=== PATIENT | male | born 1995 | race Two or more races ===

== ENCOUNTER 2018-02-25 06:30 | Emergency (ER) | payer OTHER ==
[2018-02-25 06:36] VITALS: BP 139/83
[2018-02-25] MEDS ORDERED: ONDANSETRON HCL INJ/PF 4 MG/2 ML SDV IV ONE (06:57)
[2018-02-25] MEDS ORDERED: DIAZEPAM 5 MG TABLET PO ONE (06:57)
[2018-02-25] MEDS ORDERED: NORMAL SALINE 1000 ML 1,000 ML IV ONE (06:57)
[2018-02-25] MEDS ORDERED: MECLIZINE HCL 25 MG TABLET PO ONE (06:57)
--- NOTE | 2018-02-25 07:03 | ER Document Report ---
ED General - General Chief Complaint: Dizziness Stated Complaint: VOMITING Time Seen by Provider: 02/25/18 06:50 TRAVEL OUTSIDE OF THE [place] IN LAST 30 DAYS: No - HPI Notes: Patient is a 22-year-old male that presents to the emergency department for chief complaint of vertigo. Patient states this morning he had acute onset of dizziness. He states when he moves his head in any direction the room begins to spin. He does report sinus congestion and runny nose for the last week. He denies history of vertigo in the past. He states that the dizziness has made him vomit a few times. Patient was on duty for the last 24 hours and reports not having much to eat or drink. He denies any chronic medical issues. He denies any numbness, weakness, vision changes. He denies head injury Past Medical History: Negative Past Surgical History: Negative Social History: Reviewed in chart Family History: Reviewed and noncontributory for presenting illness Allergies: Reviewed, see documented allergy list. REVIEW OF SYSTEMS: CONSTITUTIONAL : No fever No chills No diaphoresis No recent illness EENT: No vision changes No congestion No sore throat CARDIOVASCULAR: No chest pain No palpitations RESPIRATORY: No shortness of breath No cough No difficulty breathing GASTROINTESTINAL: No abdominal pain nausea vomiting No diarrhea GENITOURINARY: No dysuria No hematuria No difficulty urinating MUSCULOSKELETAL: No back pain No leg pain No arm pain SKIN: No rashes No lesions LYMPHATIC: No swollen, enlarged glands. NEUROLOGICAL: No lightheadedness No headache No weakness No paresthesias Dizziness PSYCHIATRIC: No anxiety No depression PHYSICAL EXAMINATION: Vital signs reviewed, nursing noted reviewed. GENERAL: Well-appearing, well-nourished and in no acute distress. HEAD: Atraumatic, normocephalic. EYES: No nystagmus, eyes appear normal, extraocular movements intact, sclera anicteric, conjunctiva are normal. ENT: nares patent, oropharynx clear without exudates. Moist mucous membranes. NECK: Normal range of motion, supple without lymphadenopathy LUNGS: Breath sounds clear to auscultation bilaterally and equal. No wheezes rales or rhonchi. HEART: Regular rate and rhythm without murmurs ABDOMEN: Soft, nontender, normoactive bowel sounds. No rebound, guarding, or rigidity. No masses appreciated. EXTREMITIES: Nontender, good range of motion, no pitting or edema. NEUROLOGICAL: No focal neurological deficits. Moves all extremities spontaneously Motor and sensory grossly intact on exam. PSYCH: Normal mood, normal affect. SKIN: Warm, Dry, normal turgor, no rashes or lesions noted on exposed skin - Related Data Allergies/Adverse Reactions: No Known Allergies Allergy (Unverified 02/25/18 06:32) Past Medical History - Social History Smoking Status: Never Smoker Family History: Reviewed & Not Pertinent Physical Exam - Vital signs Vitals: Temp Pulse Resp BP Pulse Ox 97.3 F 77 18 139/83 H 99 02/25/18 06:34 02/25/18 06:34 02/25/18 06:34 02/25/18 06:34 02/25/18 06:34 Course - Re-evaluation Re-evalutation: 02/25/18 06:59 Vitals reviewed. Nursing notes reviewed. Patient is afebrile and nontoxic in appearance. He has no focal neurologic deficits. He does have reproduction of symptoms with any movement of his head and appears very vertiginous. Patient will be given IV fluids as well as meclizine and Valium for symptomatic management. Because of his poor oral intake over the last 24 hours lab work will be obtained to evaluate his electrolytes. Nursing obtain an EKG in triage which shows no acute ischemic changes or hyper acute T waves 02/25/18 07:39 Patient reevaluated and clinically appears much better. He states his dizziness has resolved mostly but is not completely gone. He is now able to move his head with minimal reproduction of symptoms. His potassium was slightly low and he was given oral potassium replacement. Patient still has fluids going and was recently medicated, he will continue to be monitored. Laboratory 02/25/18 02/25/18 06:57 06:57 WBC 10.5 RBC 5.46 Hgb 16.6 Hct 47.5 MCV 87 MCH 30.5 MCHC 35.1 RDW 13.7 Plt Count 263 Seg Neutrophils % 56.5 Lymphocytes % 27.3 Monocytes % 6.9 Eosinophils % 8.6 H Basophils % 0.7 Absolute Neutrophils 6.0 Absolute Lymphocytes 2.9 Absolute Monocytes 0.7 Absolute Eosinophils 0.9 H Absolute Basophils 0.1 Sodium 139.7 Potassium 3.3 L Chloride 103 Carbon Dioxide 25 Anion Gap 12 BUN 12 Creatinine 0.71 Est GFR ( Amer) > 60 Est GFR (Non-Af Amer) > 60 Glucose 155 H Calcium 9.1 02/25/18 0800 Patient was reevaluated and had complete resolution of symptoms. He was able to ambulate with no ataxia. He will be given meclizine for symptom medic management at home. He is stable at discharge. He was counseled on return precautions and verbalized understanding. - Vital Signs Vital signs: Temp Pulse Resp BP Pulse Ox 97.3 F 77 18 139/83 H 99 02/25/18 06:34 02/25/18 06:34 02/25/18 06:34 02/25/18 06:34 02/25/18 06:34 - Laboratory Result Diagrams: 02/25/18 06:57 02/25/18 06:57 Laboratory results interpreted by me: 02/25/18 02/25/18 06:57 06:57 Eosinophils % 8.6 H Absolute Eosinophils 0.9 H Potassium 3.3 L Glucose 155 H - EKG Interpretation by Me Additional EKG results interpreted by me: 02/25/18 07:00 Interpreted by myself [id number]: Normal sinus rhythm, rate 74, normal axis, no ectopy, no STEMI Discharge - Discharge Clinical Impression: Vertigo, Hypokalemia Condition: Stable Disposition: HOME, SELF-CARE Instructions: Hypokalemia ([facility]), Vertigo ([facility]) Additional Instructions: Please return to the emergency department if you have any worsening, or concern of your symptoms. Please return to the emergency department if you develop chest pain, difficulty breathing, severe abdominal pain, or ongoing vomiting. Please follow-up with your primary care physician in 2-3 days and any other recommended physicians. If prescribed, take all medications as directed. If you have any questions or concerns do not hesitate to return the emergency department for evaluation. Prescriptions: RX: Meclizine HCl [Motion Sickness Relief] 25 mg PO Q6 PRN #20 tablet PRN Reason: Dizziness Ondansetron [Zofran Odt 4 mg Tablet] 1 tab PO Q4H PRN #15 tab.rapdis PRN Reason: For Nausea/Vomiting Forms: Return to Work Referrals: [facility] [Provider Group] - Follow up as needed
[2018-02-25 07:10] LABS: ABSOLUTE BASOPHILS # (AUTO) 0.1 10^3/uL (0.0-0.2); ABSOLUTE EOSINOPHILS # (AUTO) 0.9 10^3/uL (0.0-0.6); ABSOLUTE LYMPHOCYTES (AUTO) 2.9 10^3/uL (0.5-4.7); ABSOLUTE MONOCYTES (AUTO) 0.7 10^3/uL (0.1-1.4); BASOPHILS % (AUTO) 0.7 % (0-2); EOSINOPHILS % (AUTO) 8.6 % (0-6); HEMATOCRIT 47.5 % (37.9-51.0); HEMOGLOBIN 16.6 g/dL (13.5-17.0); LYMPHOCYTES % (AUTO) 27.3 % (13-45); MEAN CORPUSCULAR HEMOGLOBIN 30.5 pg (27.0-33.4); MEAN CORPUSCULAR HGB CONC 35.1 g/dL (32.0-36.0); MEAN CORPUSCULAR VOLUME 87 fl (80-97); MONOCYTES % (AUTO) 6.9 % (3-13); PLATELET COUNT 263 10^3/uL (150-450); RED BLOOD COUNT 5.46 10^6/uL (4.35-5.55); RED CELL DISTRIBUTION WIDTH 13.7 % (11.5-14.0); SEGMENTED NEUTROPHILS % (AUTO) 56.5 % (42-78); TOTAL CELLS COUNTED % (AUTO) 100 %; WHITE BLOOD COUNT 10.5 10^3/uL (4.0-10.5)
[2018-02-25 07:30] LABS: ANION GAP 12 (5-19); BLOOD UREA NITROGEN 12 mg/dL (7-20); CALCIUM 9.1 mg/dL (8.4-10.2); CARBON DIOXIDE 25 mmol/L (22-30); CHLORIDE 103 mmol/L (98-107); GLUCOSE 155 mg/dL (75-110); POTASSIUM 3.3 mmol/L (3.6-5.0); SODIUM 139.7 mmol/L (137-145)
[2018-02-25] MEDS ORDERED: POTASSIUM CHLORIDE 10 MEQ CAPSULE.ER PO ONE (07:33)
--- NOTE | 2018-02-25 09:24 | EKG REPORT ---
SEVERITY:- NORMAL ECG - SINUS RHYTHM : Confirmed by: Charles Wells 25-Feb-2018 09:24:17
== END 2018-02-25 08:16 | disposition home or self-care (01) ==
LOC: ER 06:30
DX: R42 Dizziness and giddiness (principal); E87.6 Hypokalemia; R09.89 Other specified symptoms and signs involving the circulatory and respiratory systems; R11.2 Nausea with vomiting, unspecified; R09.81 Nasal congestion
CPT/HCPCS: 93005; 99283; 96361; 96374; 36415; 85025; 80048; 93010; J2405; J7030